=== PATIENT | female | born 1950 | race Caucasian/White ===

== ENCOUNTER 2016-12-18 10:28 | Emergency (ER) | payer BC, OTHER ==
[~2016-12-18] VITALS: Ht 165.1 cm; Wt 52.0 kg
[2016-12-18 10:31] VITALS: BP 129/68; PULSE 67; RESP 14; TEMP 98; O2SAT 98
--- NOTE | 2016-12-18 10:47 | PD ---
HPI Chief Complaint: Skin Problem Time Seen by Provider: 10:46 Travel History International Travel<30 days: No Contact w/Intl Traveler<30days: No Traveled to known affect area: No History of Present Illness HPI 66-year-old female presents to the emergency department with complaint of rash to her abdomen that started on Monday and has spread to bilateral upper extremities, lower back, and left neck behind her ear. She cleaned out her shed on Monday and Monday and thinks that she may have been exposed to poison zeynep. She followed up with dermatology and they gave her a topical steroid cream which she has been using with no relief of symptoms. Has been taking Benadryl with good relief of itching. She denies airway edema, stridor, wheezing, difficulty breathing, shortness of breath. Denies fever, chills, nausea, vomiting. Reports rash is itchy. History of hypertension and seizures. Allergies to Cipro and Keppra. No other modifying factors or associated signs and symptoms. PFSH Past Medical History Hypertension: Yes Seizures: Yes ?: Not Social History Tobacco Use: No Allergies-Medications (Allergen,Severity, Reaction): Coded Allergies: Cipro (Verified Allergy, Severe, "DRUNK", 12/18/16) Keppra (Verified Allergy, Severe, "DRUNK", 12/18/16) Reported Meds & Prescriptions Reported Meds & Active Scripts Active Deltasone (Prednisone) 20 Mg Tab 40 Mg PO DAILY 5 Days START 12/19/2016 Review of Systems Except as stated in HPI: all other systems reviewed are Neg Physical Exam Narrative GENERAL: Well-nourished, well-developed patient, in no acute distress; afebrile , nontoxic-appearing SKIN: Warm and dry. Large area of erythematous rash to the abdomen; areas of erythema plaque-like rash to left lower back, bilateral antecubitals, and behind left ear. There are vesicular streak-like areas noted to bilateral upper extremities. Rash is consistent with contact dermatitis possibly from poison zeynep exposure. HEAD: Atraumatic. Normocephalic. EYES: Pupils equal and round. No scleral icterus. No injection or drainage. PERRLA. ENT: Mucosa pink and moist. Airway patent. EARS: Bilateral pinnae and external canals appear within normal limits. NECK: Trachea midline. No lymphadenopathy. CARDIOVASCULAR: Regular rate. RESPIRATORY: No accessory muscle use. GASTROINTESTINAL: Flat. MUSCULOSKELETAL: No obvious deformities. No clubbing. No cyanosis. No edema. NEUROLOGICAL: Awake and alert. Oriented 3. No obvious cranial nerve deficits. Motor grossly within normal limits. Normal speech. Moves all extremities. 5/5 strength to all extremities. PSYCHIATRIC: Appropriate mood and affect; insight and judgment normal. Data Data Last Documented VS Vital Signs Date Time Temp Pulse Resp B/P Pulse Ox O2 Delivery O2 Flow Rate FiO2 12/18/16 10:31 98.0 67 14 129/68 98 Orders Methylprednisolone So Succ Inj (Solumedr (12/18/16 11:00) MDM Medical Decision Making Medical Screen Exam Complete: Yes Emergency Medical Condition: Yes Medical Record Reviewed: Yes Differential Diagnosis Contact dermatitis, nonspecific skin eruption, poison zeynep dermatitis Narrative Course 66-year-old female physical exam consistent with contact dermatitis possibly from poison zeynep exposure. Patient was previously seen by dermatology and was given a topical steroid cream with no relief and worsening of symptoms. Patient is in no acute distress and without retractions or tachypnea. She denies airway edema, stridor, wheezing. Solu-Medrol administered in the ER. Deltasone prescribed for home. Instructed patient to follow-up with primary care and dermatology. Patient verbalizes understanding and agreement with treatment plan. Patient is medically cleared and stable for discharge. Discussed reasons to return to the emergency department. Instructed patient to follow up with primary care provider. Patient agrees with treatment plan. The patients vital signs are stable and the patient is stable for outpatient follow- up and treatment. Patient discharged home, stable and in no acute distress. Diagnosis Primary Impression: Contact dermatitis Qualified Code: L25.9 - Contact dermatitis, unspecified contact dermatitis type, unspecified trigger Referrals: [facility] Primary Care Physician Patient Instructions: Contact Dermatitis (ED), General Instructions, Poison Zeynep (ED) Additional Instructions: Take prednisone as prescribed Fzhq-sax-tqdepap topicals to reduce itch such as calamine lotion Benadryl as directed and as needed to reduce itch Cold Compresses to affected areas for 15-30 minutes several times daily to reduce inflammation and pain Cold water bath Containing oatmeal based product such as Aveeno may help decrease symptoms Follow-up with your primary care provider Follow-up with dermatology as needed Return to the emergency department immediately, particularly if difficulty breathing, swelling of the airway Med/Other Pt SpecificInfo: Prescription(s) given Scripts Prednisone (Deltasone)20 Mg Tab40 Mg PO DAILY 5 Days Ref 0 START 12/19/2016 Prov:Kenya Adams 12/18/16 Disposition: 01 DISCHARGE HOME Condition: Stable Kenya Adams Dec 18, 2016 10:46
[2016-12-18] MEDS ORDERED: PRED-503 PO (10:49)
[2016-12-18] MEDS ORDERED: methylPREDNISolone SOD SUCC 125 MG/2 ML VIAL IM ONE (11:00)
[2016-12-18] MEDS ORDERED: VITA100021 SL (11:14)
[2016-12-18] MEDS ORDERED: LAMO25 PO (11:14)
[2016-12-18] MEDS ORDERED: LAMO5CHW CHEW (11:14)
[2016-12-18] MEDS ORDERED: NEUR100C PO (11:14)
[2016-12-18] MEDS ORDERED: CALCCHW25 CHEW (11:14)
[2016-12-18] MEDS ORDERED: SERT25TA83 PO (11:14)
[2016-12-18] MEDS ORDERED: DILA30CA PO (11:14)
[2016-12-18] MEDS ORDERED: COZA25TA PO (11:14)
== END 2016-12-18 11:12 | disposition home or self-care (01) ==
LOC: NEPB 10:28
DX: L25.9 Unspecified contact dermatitis, unspecified cause (principal)
CPT/HCPCS: 96372; 99282; J2930